=== PATIENT | female | born 1980 ===

== ENCOUNTER 2018-01-21 18:37 | Emergency (ER) | payer SELFPAY ==
[2018-01-21] MEDS: Acetaminophen-Codeine 300/30 mg Tab PO STA (20:10)
--- NOTE | 2018-01-21 20:29 | ED PDOC ---
HPI: General Adult Time Seen by Provider: 01/21/18 19:13 Chief Complaint (Nursing): ENT Problem Chief Complaint (Provider): Ear Pain History Per: Patient History/Exam Limitations: no limitations Onset/Duration Of Symptoms: Days Current Symptoms Are (Timing): Still Present Additional Complaint(s): 37 year old female presents to the ED for an evaluation of right ear pain onset yesterday. Patient was evaluated at [facility] and prescribed Augmentin, Ibuprofen and ear drops. Denies fever or ear discharge. PMD: No Family Provider Past Medical History Reviewed: Historical Data, Nursing Documentation, Vital Signs Vital Signs: Last Vital Signs Temp 98.4 F 01/21/18 19:04 Pulse 65 01/21/18 19:04 Resp 16 01/21/18 19:04 BP 100/68 01/21/18 19:04 Pulse Ox 99 01/21/18 20:30 - Medical History PMH: No Chronic Diseases - Family History Family History: States: Unknown Family Hx - Allergies Allergies/Adverse Reactions: Allergies Allergy/AdvReac Type Severity Reaction Status Date / Time No Known Allergies Allergy Verified 01/21/18 19:04 Review of Systems ROS Statement: Except As Marked, All Systems Reviewed And Found Negative Constitutional: Negative for: Fever ENT: Positive for: Ear Pain. Negative for: Ear Discharge Physical Exam - Reviewed Nursing Documentation Reviewed: Yes Vital Signs Reviewed: Yes - Physical Exam Appears: Positive for: Well, Non-toxic, No Acute Distress Head Exam: Positive for: ATRAUMATIC, NORMAL INSPECTION, NORMOCEPHALIC Skin: Positive for: Normal Color, Warm, Dry Eye Exam: Positive for: Normal appearance ENT: Positive for: TM Is/Are (erythematous and bulging) Neurologic/Psych: Positive for: Alert, Oriented (x3). Negative for: Motor/ Sensory Deficits - ECG O2 Sat by Pulse Oximetry: 99 (RA) Pulse Ox Interpretation: Normal Medical Decision Making Medical Decision Making: Time: 2004 Initial Impression: otitis media Initial Plan: --Tylenol/Codeine 300 mg --Reevaluation Pt doing well on re-eval. Advised to continue on prescribed medications, and ENT follow up administered Scribe Attestation: Documented by Paris Lew, acting as a scribe for Kely Rasmussen PA-C. Provider Scribe Attestation: All medical record entries made by the Scribe were at my direction and personally dictated by me. I have reviewed the chart and agree that the record accurately reflects my personal performance of the history, physical exam, medical decision making, and the department course for this patient. I have also personally directed, reviewed, and agree with the discharge instructions and disposition. Disposition - Clinical Impression Clinical Impression: Right ear pain, Otitis media - Patient ED Disposition Is Patient to be Admitted: No - Disposition Disposition: Routine/Home Disposition Time: 20:42 Condition: STABLE Forms: [facility] ([place]) - POA Present On Arrival: None
[2018-01-21 22:48] VITALS: BP 122/78; PULSE 78; RESP 18; TEMP 98; O2SAT 100
== END 2018-01-21 22:47 | disposition home or self-care (01) ==
LOC: H.ER 18:37
DX: H66.91 Otitis media, unspecified, right ear (principal)

== ENCOUNTER 2018-08-27 05:56 | Emergency (ER) | payer OTHER ==
[2018-08-27 06:14] VITALS: BP 110/77; PULSE 77; RESP 16; TEMP 97.8; O2SAT 98
--- NOTE | 2018-08-27 07:35 | ED PDOC ---
HPI: CCC, URI, Sore Throat Time Seen by Provider: 08/27/18 07:07 Chief Complaint (Nursing): Back Pain Chief Complaint (Provider): Shoulder pain, ear pain History Per: Patient History/Exam Limitations: no limitations Onset/Duration Of Symptoms: Days Current Symptoms Are (Timing): Still Present Location Of Pain: Ear(s) (left ) Associated Symptoms: denies: Fever Additional Complaint(s): 37 year old female with no past medical history who is presenting to the ED for evaluation of multiple complaints. Patient states that she has had left ear pain onset yesterday and right shoulder pain associated with right arm paresthesias ongoing for 1 month. She reports that right arm parasthesias are intermittend and also accompanied by weakness. Patient also admits that she uses Q-tips to clean her ears and denies taking any medications for the pain. She denies any chest pain, back pain, fevers, or shortness of breath. 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 PMD: [facility] Past Medical History Reviewed: Historical Data, Nursing Documentation, Vital Signs Vital Signs: Last Vital Signs Temp 97.8 F 08/27/18 06:10 Pulse 77 08/27/18 06:10 Resp 16 08/27/18 06:10 BP 110/77 08/27/18 06:10 Pulse Ox 98 08/27/18 06:10 - Medical History PMH: No Chronic Diseases - Surgical History Surgical History: Cholecystectomy - Family History Family History: States: Unknown Family Hx - Social History Current smoker - smoking cessation education provided: No Alcohol: None Drugs: Denies - Home Medications Home Medications: Ambulatory Orders Medication Instructions Recorded Acetaminophen/Codeine 1 tab PO Q4H #10 tab 01/21/18 [Tylenol/Codeine 300 MG/30 MG] Amoxicillin/Clavulanate [Augmentin 1 tab PO BID #14 tab 08/27/18 875 MG-125 MG] Ciprofloxacin/Dexamethasone 2 drop BID #1 bottle 08/27/18 [Ciprodex Otic] Gabapentin 300 mg PO HS #15 capsule 08/27/18 Naproxen 500 mg PO BID #30 tab 08/27/18 - Allergies Allergies/Adverse Reactions: Allergies Allergy/AdvReac Type Severity Reaction Status Date / Time No Known Allergies Allergy Verified 08/27/18 06:10 Review of Systems ROS Statement: Except As Marked, All Systems Reviewed And Found Negative Constitutional: Negative for: Fever ENT: Positive for: Ear Pain (left ) Cardiovascular: Negative for: Chest Pain Respiratory: Negative for: Shortness of Breath Musculoskeletal: Positive for: Shoulder Pain (right ), Arm Pain (right ). Negative for: Back Pain Physical Exam - Reviewed Nursing Documentation Reviewed: Yes Vital Signs Reviewed: Yes - Physical Exam Appears: Positive for: Non-toxic, No Acute Distress Head Exam: Positive for: ATRAUMATIC, NORMAL INSPECTION, NORMOCEPHALIC Skin: Positive for: Normal Color, Warm, DRY Eye Exam: Positive for: EOMI, Normal appearance, PERRL ENT: Positive for: Other ((+) tenderness in and around preauricularand anterior cheek, (+_ tragal tenderness, (+) redness, swelling, and tenderness of left ear canal. (-) mastoid tenderness ) Neck: Positive for: Normal, Painless ROM Cardiovascular/Chest: Positive for: Regular Rate, Rhythm. Negative for: Murmur Respiratory: Positive for: Normal Breath Sounds. Negative for: Respiratory Distress Gastrointestinal/Abdominal: Positive for: Normal Exam, Soft. Negative for: Tenderness Back: Positive for: Normal Inspection. Negative for: L CVA Tenderness, R CVA Tenderness, Vertebral Tenderness Extremity: Positive for: Other (mild tenderness on palpation of right shoulder/scapular area ) Neurological/Psych: Positive for: Awake, Alert, Normal Tone, Oriented (x3). Negative for: Motor/Sensory Deficits - ECG O2 Sat by Pulse Oximetry: 98 (RA) Pulse Ox Interpretation: Normal - Progress Re-evaluation Time: 08:47 Condition: Re-examined, Improved Medical Decision Making Medical Decision Making: Time: 7:30 Impression: non-traumatic right shoulder/scapula pain for one month and acute left ear pain Differentials: peripheral neuropathy, brachial plexus neuropathy, and acute otitis externa Plan: --Toradol 30 mg IM Patient will be given pain medications in the ED and will discharged home with prescriptions for antibiotics and pain medications. Scribe Attestation: Documented by Rosaline Acuna, acting as a scribe for Roger Judd MD. Provider Scribe Attestation: All medical record entries made by the Scribe were at my direction and personally dictated by me. I have reviewed the chart and agree that the record accurately reflects my personal performance of the history, physical exam, medical decision making, and the department course for this patient. I have also personally directed, reviewed, and agree with the discharge instructions and disposition. Disposition - Clinical Impression Clinical Impression: Arm pain, right, Left ear pain, Otitis externa - Patient ED Disposition Is Patient to be Admitted: No Doctor Will See Patient In The: Office Counseled Patient/Family Regarding: Studies Performed, Diagnosis, Need For Followup - Disposition Referrals: [facility] [Outside] Disposition: Routine/Home Disposition Time: 08:47 Condition: GOOD Additional Instructions: RUDOLPH FARRAR, thank you for letting us take care of you today. Your provider was Roger Judd MD and you were treated for SHOULDER/BACK PAIN. The emergency medical care you received today was directed at your acute symptoms. If you were prescribed any medication, please fill it and take as directed. It may take several days for your symptoms to resolve. Return to the Emergency Department if your symptoms worsen, do not improve, or if you have any other problems. Please contact your doctor or call one of the physicians/clinics you have been referred to that are listed on the Patient Visit Information form that is included in your discharge packet. Bring any paperwork you were given at discharge with you along with any medications you are taking to your follow up visit. Our treatment cannot replace ongoing medical care by a primary care provider outside of the emergency department. Thank you for allowing the [facility] team to be part of your care today. Prescriptions: Amoxicillin/Clavulanate [Augmentin 875 MG-125 MG] 1 tab PO BID #14 tab Ciprofloxacin/Dexamethasone [Ciprodex Otic] 2 drop BID #1 bottle Gabapentin 300 mg PO HS #15 capsule Naproxen 500 mg PO BID #30 tab Instructions: Outer Ear Infection (DC), Peripheral Neuropathy (DC) Forms: [employer] (Honduran) Print Language: MALAY
== END 2018-08-27 09:02 | disposition home or self-care (01) ==
LOC: H.ER 05:56
DX: M79.601 Pain in right arm (principal); H60.92 Unspecified otitis externa, left ear
CPT/HCPCS: 81025; 96372; 99283; J1885